=== PATIENT | female | born 1980 | race Caucasian/White ===

== ENCOUNTER 2023-01-09 19:32 | Outpatient (REF) | payer BC, SELFPAY ==
[2023-01-15 15:08] LABS: Age Gdln ACOG Testing Note (.); HPV Aptima Negative (Negative); IGP, Aptima HPV, rfx 16/18,45 Note (.)
== END 2023-01-09 19:33 | disposition home or self-care (01) ==
LOC: LAB 19:32
PROVIDERS: Visit Provider Physician Assistant
DX: Z01.419 Encounter for gynecological examination (general) (routine) without abnormal findings (principal)
CPT/HCPCS: 87624; G0145

== ENCOUNTER 2023-05-23 13:52 | Outpatient (OUT) | payer BC, SELFPAY ==
--- NOTE | 2023-05-23 13:54 | MM_ITS ---
Patient Name: WOODY MEYERS MR#: [id number] : 1980 Exam Date: 05/23/2023 Ordering Doctor: [facility] REPORT PROCEDURE: MM TOMOSYNTHESIS SCREENING BI COMPARISON: MG MAMM SCREEN 3D BRIGHT CAD, 05/03/2022. MAMMO BRIGHT DX, 08/18/2018. INDICATIONS: Screening Calculator Name NCI Breast Cancer Risk Assessment Tool 5 Year Breast Cancer Risk 0.60% Lifetime Breast Cancer Risk 8.90% Personal Breast Cancer No Personal Ovarian Cancer No Treatments None Family Cancers Mother with thyroid cancer at age ~50. LOCATION: [facility] BREAST COMPOSITION: Scattered areas fibroglandular density. FINDINGS: DIAGNOSTIC CATEGORY 1--NEGATIVE. NO CHANGE FROM COMPARISON ASSESSMENT. Scattered benign-appearing calcifications are present. RIGHT BREAST: No significant suspicious finding. LEFT BREAST: No significant suspicious finding. RECOMMENDATIONS: ROUTINE MAMMOGRAM AND CLINICAL EVALUATION IN 12 MONTHS. PLEASE NOTE: A NORMAL MAMMOGRAM DOES NOT EXCLUDE THE POSSIBILITY OF BREAST CANCER. A CLINICALLY SUSPICIOUS PALPABLE LUMP SHOULD BE BIOPSIED. Dictated by: Tommy Pang MD on 05/23/2023 at 14:56 Approved by: Tommy Pang MD on 05/23/2023 at 14:57
== END 2023-05-23 13:53 | disposition home or self-care (01) ==
LOC: MAMMO 13:52
PROVIDERS: PCP Nurse Practitioner Primary Care; Visit Provider Nurse Practitioner Primary Care
DX: Z12.31 Encounter for screening mammogram for malignant neoplasm of breast (principal); Z80.8 Family history of malignant neoplasm of other organs or systems
CPT/HCPCS: 77063; 77067